=== PATIENT | female | born 1990 | race African-American/Black ===

== ENCOUNTER 2019-02-05 09:15 | Emergency (ER) | payer MEDICAID ==
[~2019-02-05] VITALS: Ht 162.6 cm; Wt 82.1 kg
[2019-02-05] MEDS ORDERED: DEXAMETHASONE SOD PHOS 20 MG/5 ML VIAL. PO ONE (10:00)
--- NOTE | 2019-02-05 10:31 | RAD ---
EXAM: PA and Lateral Views of the Chest DATE: 02/05/2019 10:01 AM INDICATION: SOA. painful breathing x4 days COMPARISON: No Prior FINDINGS: The heart is not enlarged. Mediastinal and hilar contours are normal. No focal parenchymal airspace opacity. No pleural effusion or pneumothorax. IMPRESSION: 1. No radiographic evidence for acute cardiopulmonary process. Electronically signed by: Sony Rizo MD (02/05/2019 10:28 AM) [facility]
[2019-02-05] MEDS ORDERED: NAPR-514 PO (10:56)
--- NOTE | 2019-02-05 10:56 | PHYS DOC ---
Past Medical History Past Medical History: No Pertinent History (SHANKAR SHARMA APRN) Past Surgical History: , Tubal ligation (SHANKAR SHARMA APRN) Alcohol Use: None Drug Use: Marijuana (SHANKAR SHARMA APRN) Adult General Chief Complaint Chief Complaint: PLEURISY HPI HPI Patient is a 28 year old AA female who presents to the emergency department with complaints of pain on inspiration for the last 3-4 days. She denies any fever, cough, shortness of breath, wheezing, nausea, vomiting, diarrhea, abdominal pain, ear pain, or sore throat. She describes the pain as sharp. Currently, she rates the pain a 9/10 on the pain scale she denies any alleviating factors, the pain increases with inspiration only. (SHANKAR SHARMA APRN) Review of Systems Review of Systems Constitutional: Denies fever or chills [] Eyes: Denies change in visual acuity, redness, or eye pain [] HENT: Denies nasal congestion or sore throat [] Respiratory: Denies cough or shortness of breath; see HPI [] Cardiovascular: No additional information not addressed in HPI [] GI: Denies abdominal pain, nausea, vomiting, or diarrhea [] Musculoskeletal: Denies back pain or joint pain [] Integument: Denies rash or skin lesions [] Neurologic: Denies headache All other systems were reviewed and found to be within normal limits, except as documented in this note. (SHANKAR SHARMA APRN) Current Medications Current Medications Current Medications Medications (Trade) Dose Ordered Sig/Robert Start Time Stop Time Status Last Admin Dose Admin Dexamethasone Sodium Phosphate (Decadron) 10 mg 1X ONCE 02/05/19 10:00 02/05/19 10:01 DC 02/05/19 10:09 10 MG (BLAYNE FLORES MD) Allergies Allergies Allergies Coded Allergies Type Severity Reaction Last Updated Verified albuterol Allergy Severe facial swelling 02/05/19 Yes mushroom Allergy Unknown 02/05/19 Yes (BLAYNE FLORES MD) Physical Exam Physical Exam Constitutional: Well developed, well nourished, no acute distress, non-toxic appearance. [] HENT: Normocephalic, atraumatic, bilateral external ears normal, oropharynx moist, nose normal. [] Eyes: PERRLA, EOMI, conjunctiva normal, no discharge. [] Neck: Normal range of motion, no stridor. [] Cardiovascular:Heart rate regular rhythm, Lungs & Thorax: Bilateral breath sounds clear to auscultation, chest non- tender[] Skin: Warm, dry, no erythema, no rash. [] Back: No tenderness Extremities: No cyanosis, no clubbing, ROM intact, no edema. [] Neurologic: Alert and oriented X 3, no focal deficits noted. [] Psychologic: Affect normal, judgement normal, mood normal. [] (SHANKAR SHARMA APRN) Current Patient Data Vital Signs Vital Signs Date Time Temp Pulse Resp B/P (MAP) Pulse Ox O2 Delivery O2 Flow Rate FiO2 02/05/19 11:00 66 16 118/60 (79) 97 Room Air 02/05/19 09:30 97.5 97.5 (BLAYNE FLORES MD) EKG EKG [] (SHANKAR SHRAMA APRN) Radiology/Procedures Radiology/Procedures PROCEDURE: CHEST PA & LATERAL EXAM: PA and Lateral Views of the Chest DATE: 02/05/2019 10:01 AM INDICATION: SOA. painful breathing x4 days COMPARISON: No Prior FINDINGS: The heart is not enlarged. Mediastinal and hilar contours are normal. No focal parenchymal airspace opacity. No pleural effusion or pneumothorax. IMPRESSION: 1. No radiographic evidence for acute cardiopulmonary process. [] (SHANKAR SHARMA APRN) Course & Med Decision Making Course & Med Decision Making Pertinent Labs and Imaging studies reviewed. (See chart for details) [] (SHANKAR SHARMA APRN) Course & Med Decision Making Staff Physician Addendum: I was working in the ER during the course of this patient's visit. I was available for consultation as needed, but I was not directly involved in the care of this patient. (BLAYNE FLORES MD) Dragon Disclaimer Dragon Disclaimer This electronic medical record was generated, in whole or in part, using a voice recognition dictation system. (SHANKAR SHARMA APRN) Departure Departure Impression: Primary Impression: Pleurisy without effusion Disposition: HOME, SELF-CARE Condition: STABLE Referrals: NO PCP (PCP) Patient Instructions: Pleurisy, [id number] Additional Instructions: Fill prescription(s) and use as directed. Recommend use of a Cool mist humidifie r in room at bedtime. Alternate Tylenol or ibuprofen as needed for pain/fever. Increase clear fluids. Avoid airway triggers such as smoke, fragrance, dust, and pollen. Follow-up with your primary care doctor in 1-2 days, return to the ER if symptoms worsen. Scripts Naproxen (NAPROXEN) 500 Mg Tablet 1 TAB PO BID PRN for PAIN for 10 Days, #20 TAB 0 Refills Prov: SHANKAR SHARMA APRN 02/05/19 SHANKAR SHARMA APRN Feb 05, 2019 10:56 BLAYNE FLORES MD Feb 05, 2019 16:38
[2019-02-05 11:00] VITALS: BP 118/60
== END 2019-02-05 11:02 | disposition home or self-care (01) ==
LOC: ER 09:15
DX: R09.81 Nasal congestion (principal); Z98.890 Other specified postprocedural states; Z98.51 Tubal ligation status; Z88.8 Allergy status to other drugs, medicaments and biological substances; Z91.018 Allergy to other foods
CPT/HCPCS: 71046; 99284; J1100

== ENCOUNTER 2019-06-26 10:48 | Emergency (ER) | payer MEDICAID ==
[~2019-06-26] VITALS: Ht 165.1 cm; Wt 94.3 kg
[~2019-06-26 10:48] MED LIST: NAPR-514 PO
[2019-06-26 11:10] VITALS: BP 151/82
[2019-06-26] MEDS ORDERED: ORPH100T PO (11:33)
--- NOTE | 2019-06-26 11:33 | PHYS DOC ---
Past Medical History Past Medical History: No Pertinent History (AURELIANO DON APRN) Past Surgical History: , Tubal ligation (AURELIANO DON APRN) Smoking Status: Never Smoker Alcohol Use: None Drug Use: Marijuana (AURELIANO DON APRN) Adult General Chief Complaint Chief Complaint: BACK PAIN OR INJURY [facility] Patient is a 29 year old female who presents with back pain this been ongoing since Wednesday. The patient states she was pushing a wheelchair at work and her back started hurting. The patient's pain is located in the upper back on the left side. The patient rates her pain is 8 out of 10 in severity. The patient been taking bears aspirin at home has not been helping. Denies any other symptoms. Complete ROS were reviewed and found to be within normal limits, except as documented in the HPI (AURELIANO DON APRN) Allergies Allergies Allergies Coded Allergies Type Severity Reaction Last Updated Verified albuterol Allergy Severe facial swelling 02/05/19 Yes mushroom Allergy Intermediate hives 06/26/19 Yes tramadol Allergy Intermediate hives, n/v, dizziness 06/26/19 Yes (AURELIANO WRIGHT DO) Physical Exam Physical Exam Constitutional: Well developed, well nourished, no acute distress, non-toxic appearance. [] HENT: Normocephalic, atraumatic, bilateral external ears normal, oropharynx moist, no oral exudates, nose normal. [] Eyes: PERRLA, EOMI, conjunctiva normal, no discharge. [] Neck: Normal range of motion, no tenderness, supple, no stridor. [] Cardiovascular:Heart rate regular rhythm, no murmur [] Lungs & Thorax: Bilateral breath sounds clear to auscultation []. [] Skin: Warm, dry, no erythema, no rash. [] Back: Left-sided back tenderness in the upper back on palpation, no CVA tenderness. [] Extremities: No tenderness, no cyanosis, no clubbing, ROM intact, no edema. [] Neurologic: Alert and oriented X 3, normal motor function, normal sensory function, no focal deficits noted. [] Psychologic: Affect normal, judgement normal, mood normal. [] (AURELIANO DON APRN) Current Patient Data Vital Signs Vital Signs Date Time Temp Pulse Resp B/P (MAP) Pulse Ox O2 Delivery O2 Flow Rate FiO2 06/26/19 11:10 98.0 88 16 151/82 (105) 99 Room Air 98.0 (WRIGHTAURELIANO PRUITT DO) EKG EKG [] (AURELIANO DON APRN) Radiology/Procedures Radiology/Procedures [] (AURELIANO DON APRN) Course & Med Decision Making Course & Med Decision Making Pertinent Labs and Imaging studies reviewed. (See chart for details) The patient likely has a musculoskeletal strain of her upper back. Discussed this with the patient discussed that I want her to start taking 400 mg ibuprofen every 6 hours. Also discussed to get ThermaCare heat patches and use those at home. Also discussed using a foam roller or tennis ball to help her lower back. We will also prescribe muscle relaxers and discussed taking those before bed. Discussed with the patient these medications can make her drowsy. (AURELIANO DON APRN) Dragon Disclaimer Dragon Disclaimer This electronic medical record was generated, in whole or in part, using a voice recognition dictation system. (AURELIANO DON APRN) Departure Departure Impression: Primary Impression: Musculoskeletal back pain Disposition: 01 HOME, SELF-CARE Condition: STABLE Referrals: NO PCP (PCP) Patient Instructions: Musculoskeletal Pain Additional Instructions: Thank you for visiting [facility]. We appreciate you trusting us with your care. If any additional problems come up don't hesitate to return to visit us. Please follow up with your primary care provider so they can plan additional care if needed and know about the problem that you had. If symptoms worsen come back to the Emergency Department. Any concerning symptoms that start such as chest pain, shortness of air, weakness or numbness on one side of the body, running high fevers or any other concerning symptoms return to the ER. As we discussed start taking 400 mg ibuprofen every 6 hours for the next 3 days. Also crop picker ThermaCare heat patches to help with your back pain. Also as we discussed please start using a foam roller on your back to help rule out the muscle. Please fill your medications at any pharmacy and follow the prescription instr uctions. Scripts Orphenadrine Citrate (ORPHENADRINE CITRATE) 100 Mg Tablet.er 100 MG PO BID PRN for MUSCLE PAIN for 5 Days, #10 TAB.SR Prov: AURELIANO DON APRN 06/26/19 Attending Signature Attending Signature I have reviewed the PA/SOURCE INSPECTOR's note and plan of care. I was available for consultation as needed during the patient's visit in the emergency department. I agree with the clinical impression, plan, and disposition. (AURELIANO WRIGHT DO) AURELIANO DON APRN Jun 26, 2019 11:33 AURELIANO WRIGHT DO Jun 26, 2019 20:26
== END 2019-06-26 11:36 | disposition home or self-care (01) ==
LOC: ER 10:48
DX: M54.6 Pain in thoracic spine (principal); Z98.51 Tubal ligation status; Z88.6 Allergy status to analgesic agent; Z88.8 Allergy status to other drugs, medicaments and biological substances; Z91.018 Allergy to other foods
CPT/HCPCS: 99283